=== PATIENT | male | born 1965 | race Caucasian/White ===

== ENCOUNTER → 2018-06-20 06:11 | Outpatient (CLI) | payer MEDICAID, SELFPAY ==
--- NOTE | 2018-06-20 06:13 | NM_ITS ---
History and Indications: Coronary artery disease, previous IN, hypertension, hyperlipidemia, tobacco use, family history, chest pain and shortness of breath Procedure: Patient exercised on [place] protocol 6 minutes, resting heart rate was 56 bpm resting blood pressure 179/93, with exercise maximum heart achieved was 1 46 bpm is greater than 85% of the maximum predicted heart rate and a blood pressure was 185/85. Test was started due to shortness of breath and fatigue. Patient has adequate exercise capacity achieved 7mets of workload on treadmill, the blood pressure response to exercise was abnormal. Electrocardiogram: Resting electrocardiogram showed sinus bradycardia, with exercise frequent ventricular complexes present, excessive baseline artifact seen, there is less than 1.[address] segment depression noted from the baseline EKG in the recovery. The EKG portion of the exercise Myoview is nondiagnostic due to excessive baseline artifact. Cardiac stress and resting SPECT images: Cardiac stress and resting SPECT images were obtained using technetium 99 Myoview 32.0 mCi stress and 9.9 mCi at rest. Gated SPECT further analysis of segmental wall motion and calculation of the ejection fraction also done. Cardiac stress and rest SPECT images show uniform myocardial activity without segmental perfusion abnormality, computer derived ejection fraction is 51% with no regional wall motion abnormality, right ventricle is normal size and contractility. Conclusion: 1. The EKG portion of the exercise Myoview is nondiagnostic secondary to excessive baseline artifact, patient has adequate exercise capacity achieved 7mets of workload on treadmill, the blood pressure response to exercise was adequate. 2. No scintigraphic evidence of reversible ischemia seen at this level of exercise, computer derived ejection fraction is 51% with no regional wall motion abnormality, right ventricle is normal size and contractility.
--- NOTE | 2018-06-20 06:13 | CA_ITS ---
PROCEDURE: 2-D M-mode and color Doppler study INDICATIONS FOR THE TEST: Chest pain + COPD Heart Murmur Tobacco Smoking Palpitations Fatigue Syncope Edema Hypertension+Diabetes Mellitus Rheumatic Fever SOB+GONSALES Obesity Hyperlipidemia+ Family History HD Additional History CAD, ABN EKG, ALCOHOL USE, TIA PATIENT INFORMATION HEIGHT: 67 WEIGHT:179 GENDER: Male B/P:146/96 2-D/M-MODE INTERPRETATION: 2-D MEASUREMENTS OBSERVED VALUES IN CMS Right Ventricular Dimension (RVDd) 2.1 Interventricular Septum (Thickness)(IVsd) 1.1 Left Ventricular Internal Dimensions(LVIDd) 5.4 Left Ventricular Posterior Wall (Thickness)(LVPWd) 0.9 Aortic Root 3.1 Aortic Cusp Separation 2.1 Left Atrial Dimensions (LAD) 3.4 2D 1. Left atrium is mildly enlarged, left ventricle is normal size, mild concentric left ventricular hypertrophy, visually estimated ejection fraction 55% with no regional wall motion abnormality. 2. The right atrium is mildly enlarged, right ventricle is normal size and contractility. 3. The aortic valve is minimally thickened and fibrosed. 4. The mitral and tricuspid valve are grossly normal. 5. The pulmonic valve is poorly visualized. 6. No significant pericardial effusion noted. DOPPLER INTERROGATION: Doppler interrogation of the aortic, mitral and tricuspid valvular presence of mild mitral and tricuspid regurgitation, tricuspid regurgitation jet velocity is inadequate for calculation of the right ventricular systolic pressure, diastolic parameters are within inconclusive. CONCLUSION: 1. Mild biatrial enlargement, normal left ventricular size, mild concentric left ventricular hypertrophy, visually estimated ejection fraction 55% with no regional wall motion abnormality, diastolic parameters are inconclusive. 2. Mild mitral and tricuspid regurgitation 3. No significant pericardial effusion noted.
--- NOTE | 2018-06-20 07:08 | HMH.ITSHM ---
Current Home Medications as stated by this patient Yair Aguirre or field representative/health education. []SERTRALINE MONTELUKAST METHYLPREDNISOLONE LISINOPRIL HYDROXYZINE BISOPROLOL ATORVASTATIN ASA
== END ==
PROVIDERS: PCP Nurse Practitioner Family; Visit Provider Internal Medicine
DX: I20.8 Other forms of angina pectoris (principal); R94.31 Abnormal electrocardiogram [ECG] [EKG]; E78.5 Hyperlipidemia, unspecified; I10 Essential (primary) hypertension; F10.20 Alcohol dependence, uncomplicated; Z82.49 Family history of ischemic heart disease and other diseases of the circulatory system
CPT/HCPCS: 78452; 93017; 93306; A9502

== ENCOUNTER 2018-06-28 23:32 | Observation (INO) ==
[2018-06-29 00:10] LABS: Basophils # 0.1 K/mm3 (0-0.2); Basophils % 0.7 % (0.1-2.0); Eosinophils # 0.3 K/mm3 (0.0-0.4); Eosinophils % 3.6 % (0.1-12.0); Hematocrit 41.3 % (42.0-52.0); Lymphocytes # 2.3 K/mm3 (0.7-4.5); Lymphocytes % 27.5 % (10-50); Mean Corpuscular HGB Conc 33.8 g/dL (31.8-35.4); Mean Corpuscular Volume 82.9 fl (80-94); Mean Platelet Volume 6.6 fl (7.4-10.4); Monocytes # 0.4 K/mm3 (0.1-1.0); Monocytes % 5.4 % (1.7-9.3); Neutrophils # 5.2 K/mm3 (1.8-7.8); Neutrophils % 62.9 % (37.0-80.0); Platelet Count 260 K/mm3 (142-424); Red Blood Count 4.98 M/mm3 (4.60-6.20); Red Cell Distribution Width 13.6 % (11.5-17.5); White Blood Count 8.2 K/mm3 (4.8-10.8)
--- NOTE | 2018-06-29 00:18 | Emergency Department Note ---
ED Disposition Clinical Impression: Chest pain Qualifiers: Chest pain type: precordial pain Qualified Code(s): R07.2 - Precordial pain HTN (hypertension) Qualifiers: Hypertension type: essential hypertension Qualified Code(s): I10 - Essential (primary) hypertension Disposition: Admitted as Observation Condition on Discharge: Good - Critical Care Critical Care Time: No Attestation: On 06/28/18, the high probability of a clinically significant, sudden or life threatening deterioration of the following system(s) required my full and direct attention, intervention and personal management. The time I documented below is in addition to time spent performing reported procedures but includes the follo wing listed in this critical care notation. Medical Decision Making - Medical Records Medical records reviewed: Yes: I reviewed the patient's medical records. - [place] Inquiry Pt receiving controlled substance: No Vital Signs: 06/28/18 23:35 06/29/18 00:07 06/29/18 01:24 Temperature 97.9 F Temperature Source Oral Pulse Rate Pulse Rate [Right Brachial] 69 65 58 L Respiratory Rate 16 14 14 Blood Pressure Blood Pressure [Right Arm] 163/96 H 151/86 H 149/80 H Blood Pressure Mean [Right Arm] 118 107 103 Blood Pressure Source [Right Arm] Automatic Cuff Automatic Cuff Automatic Cuff Blood Pressure Position [Right Arm] Sitting Sitting Sitting 02 Sat by Pulse Oximetry 97 97 96 Oxygen Delivery Method Room Air Room Air Room Air 06/29/18 01:30 06/29/18 02:47 06/29/18 03:15 Temperature 98.5 F Temperature Source Oral Pulse Rate 63 Pulse Rate [Right Brachial] 58 L 61 Respiratory Rate 14 16 15 Blood Pressure 121/61 Blood Pressure [Right Arm] 145/80 H 125/64 Blood Pressure Mean [Right Arm] 101 84 Blood Pressure Source [Right Arm] Automatic Cuff Automatic Cuff Blood Pressure Position [Right Arm] Sitting Sitting 02 Sat by Pulse Oximetry 96 98 Oxygen Delivery Method Room Air Room Air Room Air - Lab Data Lab results reviewed: Yes: I reviewed the patient's lab results. Lab Results 06/28/18 23:55: WBC 8.2, RBC 4.98, Hgb 14.0 L, Hct 41.3 L, MCV 82.9, MCH 28.0, MCHC 33.8, RDW 13.6, Plt Count 260, MPV 6.6 L, Neut % (Auto) 62.9, Lymph % (Auto ) 27.5, [place] % (Auto) 5.4, Eos % (Auto) 3.6, Baso % (Auto) 0.7, Neut # (Auto) 5.2, Lymph # (Auto) 2.3, [place] # (Auto) 0.4, Eos # (Auto) 0.3, Baso # (Auto) 0.1 06/28/18 23:55: Sodium 128 L, Potassium 4.0, Chloride 93 L, Carbon Dioxide 26, Anion Gap 13.0, BUN 8, Creatinine 1.01, Estimated Creat Clear 98, Estimated GFR 77, Est GFR ( Amer) 93, Glucose 108 H, Calcium 9.0, Troponin I < 0.02 06/29/18 02:30: Troponin I < 0.02 Result diagrams: 06/28/18 23:55 06/28/18 23:55 Orders (Tests/Meds): ED MEDICATIONS Discontinued Medications Generic Name Dose Route Start Last Admin Trade Name Freq PRN Reason Stop Dose Admin Famotidine 20 mg 06/29/18 02:31 06/29/18 02:37 Pepcid 20mg/2ml Vial IV 06/29/18 02:32 20 mg ONCE ONE Administration Metoclopramide HCl 10 mg 06/29/18 02:31 06/29/18 02:37 Reglan 10mg/2ml Vial IVP 06/29/18 02:32 10 mg ONCE ONE Administration ORDERS Category Date Time Status XR chest 2V Stat Exams 06/29/18 00:24 Taken ECG Request by /Derek Stat Y 06/28/18 23:46 Ordered - Radiology Data #1 Image(s): Chest Image Reviewed: Yes I reviewed the patient's radiology image Preliminary Findings: Normal/NAD - ECG Data Tracing #1 Normal Sinus Rhythm: Yes Ischemic changes: non-specific ST-T wave changes - JEREMIE Score for Non-Stemi Age of Patient: 50-59 years old Heart Rate: 50-69 bpm Systolic Blood Pressure: 160-199 mmHg Serum Creatinine: 0.80-1.19 mg/dl CHF [place] Class: I-No CHF Other Risk Factors: None Non-Stemi Risk Score: 61 General Adult HPI - General Chief complaint: PAIN Stated complaint: High blood pressure Time Seen by Provider: 06/28/18 23:50 Mode of Arrival: Family Vehicle Source of Information: Patient, Relative, Medical Record Limitations: No Limitations Description of Symptoms (Recalled from ER Triage Doc. by RN): Pt states his bp has been high all day, he states he just stated a beta karolina 3 days ago and tonight is haing bad heartburn, n/v. Pt states he had a HART and blured vision earlier but doesn't now. - History of Present Illness HPI narrative: pt with episodes of chest pain assoc with elevated bp and dizzyness - has had recent nondx myoview - he presnts to ed for eval Onset (ago): hour(s) Location: chest Severity: moderate Associated symptoms: denies other symptoms Treatments prior to arrival: aspirin - Related Data Home Medications Medication Instructions Recorded Confirmed atorvastatin 40 mg tablet 40 mg PO DAILY 06/13/18 06/29/18 hydroxyzine HCl 100 mg tablet 100 mg PO DAILY tab 06/13/18 06/29/18 lisinopril 20 mg tablet 20 mg PO DAILY 06/13/18 06/29/18 montelukast 10 mg tablet 10 mg PO QPM 06/13/18 06/29/18 sertraline 100 mg tablet 100 mg PO DAILY 06/13/18 06/29/18 meloxicam 15 mg tablet 15 mg PO DAILY 06/28/18 06/29/18 Aspirin 81 mg PO DAILY 06/29/18 06/29/18 Bisoprolol Fumarate [Bisoprolol 5 mg PO DAILY 06/29/18 06/29/18 5mg Tablet] Allergies Allergy/AdvReac Type Severity Reaction Status Date / Time No Known Allergies Allergy Verified 06/28/18 23:45 [facility] History - Hepatitis A Screen Drug use history?: No High risk sexual behaviors?: No History of sexually transmitted infection?: No Currently employed?: No Childcare worker?: No Do you have indoor plumbing?: Yes Do you have electricity?: Yes Attestation statement:: This patient has been screened for Hepatitis A risk factors. I have reviewed the patient's past medical history: Yes Medical History: Reports:: Anxiety, Coronary Artery Disease, Depression, Heart Murmur, Hyperlipidemia, Hypertension, Myocardial Infarction, Transient Ischemic Attacks (TIA) Denies:: Diabetes Mellitus Type 1, Diabetes Mellitus Type 2, Internal Pacemaker, Pulmonary Embolism Other Medical History: Reports: Hypothyroidism. Denies: Blood Transfusion Reaction, Chemotherapy Comment: Mini stroke Laterality Cases: Bilateral: Myringotomy (Ear Tubes) Other Surgeries: Yes: Other (Ear Sx). No: Colonoscopy, EGD, Pacemaker Amputation: No Fractures: No - Social History Smoking Status: Former smoker Tobacco Type: smokeless tobacco Alcohol Intake: current Alcohol Intake Frequency:: 0-2 drinks per day Substance Use Type: denies use - Psychiatric History Expresses thoughts of harming self/others: None Suicide Plan Description: No Plan Pschychiatric History:: Reports:: Anxiety, Depression Family Hx:: Coronary Artery Disease, Heart Attack, Diabetes Comment: Brother- at 44 with [place] ROS Obtained: Yes All systems reviewed & no additional complaints - Constitutional Constitutional: Denies fever(s) - Eyes Eyes: Denies change in vision - ENT Ears, Nose, Mouth, and Throat: Denies sore throat - Cardiovascular Cardiovascular: Reports chest pain, Reports dyspnea, Reports lightheadedness - Respiratory Respiratory: No cough - Gastrointestinal Gastrointestingal: Reports: nausea. Denies: abdominal pain - Genitourinary Male Genitourinary: Denies hematuria - Musculoskeletal Musculoskeletal: Denies joint pain, Denies neck pain - Integumentary/Breasts Skin/Breast: Denies rash - Neurologic Neurologic: Denies headache(s), Denies seizure-like activity, Denies syncope Physical Exam - General General appearance: alert - Head Head exam: normocephalic - Eye Eye exam: Present: PERRL, EOMI - ENT ENT exam: Present: mucous membranes dry - Neck Neck exam: Present: trachea midline - Respiratory Respiratory exam: Absent: respiratory distress - Cardiovascular Cardiovascular exam: Present: regular rate, systolic murmur - Abdominal Exam Abdominal exam: Present: soft - Extremities Exam Extremities exam: Present: full ROM - Neurological Exam Neurological exam: Present: alert, CN II-XII intact - Psychiatric Psychiatric exam: Present: normal affect - Skin Skin exam: Absent: rash
[2018-06-29 00:22] LABS: Blood Urea Nitrogen 8 mg/dL (7-18); Carbon Dioxide 26 mmol/L (21.0-32.0); Chloride 93 mmol/L (98-107); Glucose 108 mg/dL (74-106); Sodium 128 mmol/L (136-145)
[2018-06-29 05:57] LABS: Basophils # 0.1 K/mm3 (0-0.2); Basophils % 0.7 % (0.1-2.0); Eosinophils # 0.3 K/mm3 (0.0-0.4); Eosinophils % 3.5 % (0.1-12.0); Hematocrit 39.3 % (42.0-52.0); Hemoglobin 12.9 g/dL (14.1-18.0); Lymphocytes # 1.7 K/mm3 (0.7-4.5); Lymphocytes % 22.4 % (10-50); Mean Corpuscular HGB Conc 32.9 g/dL (31.8-35.4); Mean Corpuscular Hemoglobin 27.6 pg (27.0-31.2); Mean Corpuscular Volume 83.7 fl (80-94); Mean Platelet Volume 6.4 fl (7.4-10.4); Monocytes # 0.5 K/mm3 (0.1-1.0); Monocytes % 6.3 % (1.7-9.3); Neutrophils % 67.1 % (37.0-80.0); Platelet Count 231 K/mm3 (142-424); Red Cell Distribution Width 13.5 % (11.5-17.5); White Blood Count 7.4 K/mm3 (4.8-10.8)
[2018-06-29 06:14] LABS: Anion Gap 12.3 mEq/L (5-15); Blood Urea Nitrogen 8 mg/dL (7-18); Calcium 9.3 mg/dL (8.5-10.1); Carbon Dioxide 29 mmol/L (21.0-32.0); Chloride 97 mmol/L (98-107); Chol/HDL Ratio 3.1 (1-3.5); Cholesterol 220 mg/dL (140-200); Glucose 103 mg/dL (74-106); HDL Cholesterol 70 mg/dL (27-67); LDL Cholesterol 126 mg/dL (0-130); Potassium 4.3 mmoL/L (3.5-5.1); Sodium 134 mmol/L (136-145); Triglycerides 119 mg/dL (30-200); VLDL Cholesterol 24 mg/dL (0-40)
--- NOTE | 2018-06-29 07:49 | Pharmacy Consult Notes ---
[facility] Pharmacy VTE Monitoring - Patient Demographics Admission date: 06/29/18 Report Date: 06/29/18 Time: 07:48 Allergies/Adverse Reactions: Patient Allergies No Known Allergies Allergy (Verified 06/28/18 23:45) Height: 1.7 m Weight: 80.513 kg Patient Problems: Current Active Problems (This Medical Record has been edited. Action required.) Chest pain (Acute) HTN (hypertension) (Acute) - VTE Risk Labs: VTE Related Lab Results Hgb 12.9 g/dL (14.1-18.0) L 06/29/18 05:35 Hct 39.3 % (42.0-52.0) L 06/29/18 05:35 Plt Count 231 K/mm3 (142-424) 06/29/18 05:35 BUN 8 mg/dL (7-18) 06/29/18 05:35 Creatinine 1.02 mg/dL (0.70-1.30) 06/29/18 05:35 Estimated Creat Clear 94 mL/min (50-200) 06/29/18 05:35 Was VTE Risk Assessment Performed: Yes VTE Score: 2 VTE Risk Level: Very Low Risk Clinical Trial Participant: No - Prophylaxis VTE Prophylaxis Ordered?: Yes Types of VTE Prophylaxis: TEDS Knee High
--- NOTE | 2018-06-29 08:40 | Consult Report ---
History of Present Illness Consult date: 06/29/18 Requesting physician: Terence Rand Consult reason: hypertension Chief complaint: heartburn, hypertension Additional Medical History:: 1. Hypertension 2. Hyperlipidemia 3. Hypothyroidism 4. Strong family history of early coronary artery disease in his parents History of present illness: 52-year-old white male admitted through the emergency department for complaint of heartburn and elevated blood pressure. Symptoms of heartburn sensation occurred while at rest. Patient noted blood pressure to be in the 190s came to the emergency department for further treatment. He does admit to forgetting to take his evening dose of bisoprolol. Symptoms of heartburn sensation did wake him from sleep. He had a similar episode about 2 weeks ago when his blood press ure was in the 150s. He denies any exertional chest pain, pressure or tightness but states he does not do any exertional activity on a regular basis. He denies tobacco use or diabetes. Initial troponins were normal x2. EKG is sinus without acute change. Cardiology consulted for evaluation recommendations due to the patient having a stress test earlier this month that showed no ischemia but nondiagnostic exercise portion. [facility] History Medical History: Reports:: Anxiety, Coronary Artery Disease, Depression, Heart Murmur, Hyperlipidemia, Hypertension, Myocardial Infarction, Transient Ischemic Attacks (TIA) Denies:: Cancer, Diabetes Mellitus Type 1, Diabetes Mellitus Type 2, Internal Pacemaker, MRSA, Pulmonary Embolism Other Medical History: Reports: Hypothyroidism. Denies: Blood Transfusion Reaction, Chemotherapy Laterality Cases: Bilateral: Myringotomy (Ear Tubes) Other Surgeries: Yes: Other (EAR SURGERY TUBES). No: Colonoscopy, EGD, Pacemaker Amputation: No Fractures: No - *Social History Educational Level: Completed GED/General Educational Development Smoking Status: Former smoker Tobacco Type: cigarettes, smokeless tobacco #Yrs smoked (if former smoker): 1 Alcohol Intake: current Alcohol Intake Frequency:: 0-2 drinks per day Substance Use Type: denies use Occupational Status: disabled Housing: house Household Members: family - Psychiatric History Expresses thoughts of harming self/others: None Suicide Plan Description: No Plan Pschychiatric History:: Reports:: Anxiety, Depression *Family Hx:: Coronary Artery Disease, Heart Attack, Diabetes Meds Home Medications Medication Instructions Recorded Confirmed Type hydroxyzine HCl 100 mg tablet 150 mg PO HS tab 06/13/18 06/29/18 History lisinopril 20 mg tablet 20 mg PO DAILY 06/13/18 06/29/18 History montelukast 10 mg tablet 10 mg PO QPM 06/13/18 06/29/18 History sertraline 100 mg tablet 100 mg PO BID 06/13/18 06/29/18 History meloxicam 15 mg tablet 15 mg PO DAILY 06/28/18 06/29/18 History Aspirin 81 mg PO DAILY 06/29/18 06/29/18 History Atorvastatin Calcium [Atorvastatin 20 mg PO HS 06/29/18 06/29/18 History 20mg Tab] Bisoprolol Fumarate [Bisoprolol 5 mg PO DAILY 06/29/18 06/29/18 History 5mg Tablet] Allergies Allergy/AdvReac Type Severity Reaction Status Date / Time No Known Allergies Allergy Verified 06/28/18 23:45 Review of Systems - *Cardiovascular Reports chest pain at rest - *Respiratory Denies shortness of breath - *Gastrointestinal Reports heartburn - *Genitourinary Denies blood in urine - *Neurologic Denies headache(s), Denies seizure-like activity, Denies fainting Exam Vital signs and Labs for Last 24 Hours: Temp Pulse Resp BP Pulse Ox 97.7 F 43 L 20 169/80 H 94 L 06/29/18 03:45 06/29/18 04:25 06/29/18 03:45 06/29/18 03:45 06/29/18 03:45 Laboratory Results - last 24 hr 06/28/18 23:55: WBC 8.2, RBC 4.98, Hgb 14.0 L, Hct 41.3 L, MCV 82.9, MCH 28.0, MCHC 33.8, RDW 13.6, Plt Count 260, MPV 6.6 L, Neut % (Auto) 62.9, Lymph % (Auto) 27.5, [place] % (Auto) 5.4, Eos % (Auto) 3.6, Baso % (Auto) 0.7, Neut # (Auto) 5.2, Lymph # (Auto) 2.3, [place] # (Auto) 0.4, Eos # (Auto) 0.3, Baso # (Auto) 0.1 06/28/18 23:55: Sodium 128 L, Potassium 4.0, Chloride 93 L, Carbon Dioxide 26, Anion Gap 13.0, BUN 8, Creatinine 1.01, Estimated Creat Clear 98, Estimated GFR 77, Est GFR ( Amer) 93, Glucose 108 H, Calcium 9.0, Troponin I < 0.02 06/29/18 02:30: Troponin I < 0.02 06/29/18 05:35: WBC 7.4, RBC 4.70, Hgb 12.9 L, Hct 39.3 L, MCV 83.7, MCH 27.6, MCHC 32.9, RDW 13.5, Plt Count 231, MPV 6.4 L, Neut % (Auto) 67.1, Lymph % (Auto) 22.4, [place] % (Auto) 6.3, Eos % (Auto) 3.5, Baso % (Auto) 0.7, Neut # (Auto) 5.0, Lymph # (Auto) 1.7, [place] # (Auto) 0.5, Eos # (Auto) 0.3, Baso # (Auto) 0.1 06/29/18 05:35: Sodium 134 L, Potassium 4.3, Chloride 97 L, Carbon Dioxide 29, Anion Gap 12.3, BUN 8, Creatinine 1.02, Estimated Creat Clear 94, Estimated GFR 76, Est GFR ( Amer) 92, Glucose 103, Calcium 9.3, Troponin I < 0.02, Triglycerides 119, Cholesterol 220 H, LDL Cholesterol 126, VLDL Cholesterol 24, HDL Cholesterol 70 H, Cholesterol/HDL Ratio 3.1 I & O for Last 24 hours: Intake & Output 06/26/18 06/27/18 06/28/18 06/29/18 11:59 11:59 11:59 11:59 Weight 177 lb 8 oz - *Routine Neck Exam Present: supple. Absent: JVD, carotid bruit - *Routine Respiratory Exam Present: CTA bilaterally. Absent: accessory muscle use, rales, rhonchi, wheezes - *Routine Cardiovascular Exam Present: RRR. Absent: murmur, gallop, rubs - *Routine Abdominal Exam Present: soft. Absent: tenderness, distended, guarding - *Routine Extremities Exam Absent: edema, calf tenderness - *Routine Neurological Exam Present: alert, oriented X3, moving all extremities Assessment and Plan (1) Hyperlipidemia Current visit: Yes Status: Acute Category: Medical Code(s): E78.5 - Hyperlipidemia, unspecified (2) Chest pain Current visit: Yes Status: Acute Qualifiers: Chest pain type: precordial pain Qualified Code(s): R07.2 - Precordial pain Category: Medical Code(s): R07.9 - Chest pain, unspecified (3) HTN (hypertension) Current visit: Yes Status: Acute Qualifiers: Hypertension type: essential hypertension Qualified Code(s): I10 - Essential (primary) hypertension Category: Medical Code(s): I10 - Essential (primary) hypertension - Assessment and plan all Dx Assessment and Plan for all problems:: 1. Recurrent chest discomfort (heartburn sensation) at rest in patient with recent mixed result stress test (non-diagnostic EKG changes with no ischemia) with significant FH of early CAD and lifelong second hand smoke exposure. Recommend [facility] to assess for CAD. 2. Hypertension with some medication non-compliance. Timing of evening meds to be adjusted so he can remember to take it.
--- NOTE | 2018-06-29 13:06 | H&P/Discharge Summary ---
General - General Admission date:: 06/29/18 Discharge date: 06/29/18 *Admission Date: 06/29/18 *Chief complaint: chest pain *History of present illness: 52-year-old white male seen in ed with complaint of heartburn and elevated blood pressure. Symptoms of heartburn sensation occurred while at rest. Patient states his blood pressure to high so he came to ed for eval, pt states he forgot to take his bp med. Symptoms of heartburn sensation did wake him from sleep. He had a similar episode about 2 weeks ago when his blood pressure was in the 150s. Cardiology consulted for evaluation recommendations due to the patient having a stress test earlier this month that showed no ischemia but nondiagnostic exercise portion. [facility] History I have reviewed the patient's past medical history: Yes Medical History: Reports:: Anxiety, Coronary Artery Disease, Depression, Heart Murmur, Hyperlipidemia, Hypertension, Myocardial Infarction, Transient Ischemic Attacks (TIA) Denies:: Cancer, Diabetes Mellitus Type 1, Diabetes Mellitus Type 2, Internal Pacemaker, MRSA, Pulmonary Embolism Other Medical History: Reports: Hypothyroidism. Denies: Blood Transfusion Reaction, Chemotherapy Laterality Cases: Bilateral: Myringotomy (Ear Tubes) Other Surgeries: Yes: Other (EAR SURGERY TUBES). No: Colonoscopy, EGD, Pacemaker Amputation: No Fractures: No - *Social History Educational Level: Completed GED/General Educational Development Smoking Status: Former smoker Tobacco Type: cigarettes, smokeless tobacco #Yrs smoked (if former smoker): 1 Alcohol Intake: current Alcohol Intake Frequency:: 0-2 drinks per day Substance Use Type: denies use Occupational Status: disabled Housing: house Household Members: family - Psychiatric History Expresses thoughts of harming self/others: None Suicide Plan Description: No Plan Pschychiatric History:: Reports:: Anxiety, Depression *Family Hx:: Coronary Artery Disease, Heart Attack, Diabetes Review of Systems - Review of Systems Review of systems:: pertinent systems reviewed and negative unless documented below - Constitutional Denies headache(s) - Eyes Denies floaters - ENT Denies change in voice - *Cardiovascular Reports shortness of breath - *Respiratory Reports shortness of breath with activity, Denies chest congestion - *Gastrointestinal Denies feeling full early - *Genitourinary Denies painful urination - *Musculoskeletal Denies decreased muscle mass - Integumentary/Breasts Denies rash - *Neurologic Denies abnormal movements, Denies headache(s), Denies seizure-like activity, Denies fainting - Psychiatric Denies anxiety - Endocrine Denies increased thirst - Hematologic/Lymphatic Denies enlarged lymph nodes - Allergic/Immunologic Denies lip swelling Exam Vital signs and Labs for Last 24 Hours: Temp Pulse Resp BP Pulse Ox 97.6 F 44 L 18 120/66 98 06/29/18 08:00 06/29/18 12:10 06/29/18 12:10 06/29/18 12:10 06/29/18 12:10 Laboratory Results - last 24 hr 06/28/18 23:55: WBC 8.2, RBC 4.98, Hgb 14.0 L, Hct 41.3 L, MCV 82.9, MCH 28.0, MCHC 33.8, RDW 13.6, Plt Count 260, MPV 6.6 L, Neut % (Auto) 62.9, Lymph % (Auto) 27.5, Yates % (Auto) 5.4, Eos % (Auto) 3.6, Baso % (Auto) 0.7, Neut # (Auto) 5.2, Lymph # (Auto) 2.3, Yates # (Auto) 0.4, Eos # (Auto) 0.3, Baso # (Auto) 0.1 06/28/18 23:55: Sodium 128 L, Potassium 4.0, Chloride 93 L, Carbon Dioxide 26, Anion Gap 13.0, BUN 8, Creatinine 1.01, Estimated Creat Clear 98, Estimated GFR 77, Est GFR ( Amer) 93, Glucose 108 H, Calcium 9.0, Troponin I < 0.02 06/29/18 02:30: Troponin I < 0.02 06/29/18 05:35: WBC 7.4, RBC 4.70, Hgb 12.9 L, Hct 39.3 L, MCV 83.7, MCH 27.6, MCHC 32.9, RDW 13.5, Plt Count 231, MPV 6.4 L, Neut % (Auto) 67.1, Lymph % (Au to) 22.4, Yates % (Auto) 6.3, Eos % (Auto) 3.5, Baso % (Auto) 0.7, Neut # (Auto) 5.0, Lymph # (Auto) 1.7, Yates # (Auto) 0.5, Eos # (Auto) 0.3, Baso # (Auto) 0.1 06/29/18 05:35: Sodium 134 L, Potassium 4.3, Chloride 97 L, Carbon Dioxide 29, Anion Gap 12.3, BUN 8, Creatinine 1.02, Estimated Creat Clear 94, Estimated GFR 76, Est GFR ( Amer) 92, Glucose 103, Calcium 9.3, Troponin I < 0.02, Triglycerides 119, Cholesterol 220 H, LDL Cholesterol 126, VLDL Cholesterol 24, HDL Cholesterol 70 H, Cholesterol/HDL Ratio 3.1 06/29/18 09:19: Troponin I < 0.02 I & O for Last 24 hours: Intake & Output 06/27/18 06/28/18 06/29/18 06/30/18 11:59 11:59 11:59 11:59 Intake Total 0 / 0 Balance 0 / 0 Weight 177 lb 8 oz - *Routine HEENT Exam Head: Present: normocephalic Eye: Present: PERRL ENT: Present: mucous membranes moist - *Routine Neck Exam Present: supple. Absent: lymphadenopathy - *Routine Respiratory Exam Present: CTA bilaterally - *Routine Cardiovascular Exam Present: RRR - *Routine Abdominal Exam Present: soft, normoactive bowel sounds. Absent: tenderness - *Routine Extremities Exam Absent: cyanosis, clubbing, edema - *Routine Skin Exam Present: warm. Absent: rash - *Routine Neurological Exam Present: alert, oriented X3 Hospital Course Hospital Course: ANGIOGRAPHIC RESULTS: 1. The left main artery normal 2. The left anterior descending artery has proximal concentric 30% stenoses with mild mid vessel 10% stenoses 3. The circumflex artery is a large dominant vessel with 20-30% stenosis in the first obtuse marginal artery and mild distal luminal irregularities 4. The right coronary artery small nondominant normal 5. The [place] ventriculogram reveals normal 65% 6. The left ventricular end-diastolic pressure 15 mmHg IMPRESSION: 1. Mild nonflow limiting coronary artery disease as described above 2. Normal ejection fraction 3. Normal left ventricular end-diastolic pressure PLAN: 1. Medical management 2. Evaluation noncardiac chest pain will follow as outpt Results Labs on day of discharge: Labs from last 24 hours 06/29/18 06/29/18 06/29/18 09:19 05:35 05:35 WBC 7.4 RBC 4.70 Hgb 12.9 L Hct 39.3 L MCV 83.7 MCH 27.6 MCHC 32.9 RDW 13.5 Plt Count 231 MPV 6.4 L Neut % (Auto) 67.1 Lymph % (Auto) 22.4 Yates % (Auto) 6.3 Eos % (Auto) 3.5 Baso % (Auto) 0.7 Neut # (Auto) 5.0 Lymph # (Auto) 1.7 Yates # (Auto) 0.5 Eos # (Auto) 0.3 Baso # (Auto) 0.1 Sodium 134 L Potassium 4.3 Chloride 97 L Carbon Dioxide 29 Anion Gap 12.3 BUN 8 Creatinine 1.02 Estimated Creat Clear 94 Estimated GFR 76 Est GFR ( Amer) 92 Glucose 103 Calcium 9.3 Troponin I < 0.02 < 0.02 Triglycerides 119 Cholesterol 220 H LDL Cholesterol 126 VLDL Cholesterol 24 HDL Cholesterol 70 H Cholesterol/HDL Ratio 3.1 06/29/18 06/28/18 06/28/18 02:30 23:55 23:55 WBC 8.2 RBC 4.98 Hgb 14.0 L Hct 41.3 L MCV 82.9 MCH 28.0 MCHC 33.8 RDW 13.6 Plt Count 260 MPV 6.6 L Neut % (Auto) 62.9 Lymph % (Auto) 27.5 Yates % (Auto) 5.4 Eos % (Auto) 3.6 Baso % (Auto) 0.7 Neut # (Auto) 5.2 Lymph # (Auto) 2.3 Yates # (Auto) 0.4 Eos # (Auto) 0.3 Baso # (Auto) 0.1 Sodium 128 L Potassium 4.0 Chloride 93 L Carbon Dioxide 26 Anion Gap 13.0 BUN 8 Creatinine 1.01 Estimated Creat Clear 98 Estimated GFR 77 Est GFR ( Amer) 93 Glucose 108 H Calcium 9.0 Troponin I < 0.02 < 0.02 Triglycerides Cholesterol LDL Cholesterol VLDL Cholesterol HDL Cholesterol Cholesterol/HDL Ratio - Additional Comments Rounded with Dr. Rand all orders per [place] DS: Diagnosis - Discharge Diagnosis (1) Hyperlipidemia Status: Acute (2) Chest pain Status: Acute (3) HTN (hypertension) Status: Acute Discharge Medications - Medications for Discharge Home Medication List at Discharge: No Action sertraline 100 mg tablet 100 mg PO BID hydroxyzine HCl 100 mg tablet 150 mg PO HS tab montelukast 10 mg tablet 10 mg PO QPM lisinopril 20 mg tablet 20 mg PO DAILY meloxicam 15 mg tablet 15 mg PO DAILY Bisoprolol Fumarate [Bisoprolol 5mg Tablet] 5 mg PO DAILY Aspirin 81 mg PO DAILY Atorvastatin Calcium [Atorvastatin 20mg Tab] 20 mg PO HS Disposition Disposition: Home, Self-Care
== END 2018-06-29 16:27 | disposition home or self-care (01) ==
LOC: ER 23:32 → 2ND 23:32
PROVIDERS: ADMIT Emergency Medicine; ATTEND Emergency Medicine

== ENCOUNTER → 2018-08-08 08:33 | Outpatient (CLI) | payer MEDICAID, SELFPAY ==
--- NOTE | 2018-08-08 08:36 | FL_ITS ---
FL upper GI w air HISTORY: ITS.REASON: heartburn/reflux ORDERING PHYSICIAN: Eliezer Lima MD PATIENT AGE: 52 years Comparison: None FINDINGS: The esophagus, stomach, and duodenum have an unremarkable appearance. There is no evidence of hiatal hernia. No ulcer or mass evident. No mucosal abnormalities apparent. There is normal peristalsis. The duodenal C-loop is nondisplaced. FLUOROSCOPY TIME : 1 minute and 17 seconds. IMPRESSION: Negative upper GI
== END ==
PROVIDERS: PCP Emergency Medicine; Referring Provider Surgery; Visit Provider Surgery
DX: R12 Heartburn (principal)
CPT/HCPCS: 74247

== ENCOUNTER 2020-05-07 11:14 | Emergency (ER) | payer MEDICAID, SELFPAY ==
[2020-05-07 11:15] VITALS: BP 198/76; PULSE 74; RESP 18; O2SAT 97; BMI 26.6
--- NOTE | 2020-05-07 11:29 | HMH.EDUTC ---
[facility] Clinical Impression: Encounter for laboratory testing for COVID-19 virus Disposition: Home, Self-Care Condition on Discharge: Good Instructions: Preventing the Spread of Coronavirus Discharge Instructions Additional Instructions: *Monitor Temp, Over the counter Motrin or Tylenol as directed/as needed Tylenol every 4 hours and Motrin every 6 hours (as long as your family doctor has told you that you can take it) for fever or pain. and straight to ER if unable to lower temp less than 101.0 after medication given *Warm salt water gargles may help to soothe the throat *Throat Lozenges *Warm fluids like tea with honey may help to soothe the throat *Sleep elevated *Humidifier/Vaporizer Follow up IMMEDIATELY for new or worsening symptoms or no Noticeable improvement over the next 48-72 hours. 911 for difficulty breathing or swallowing You was tested for today for COVID19 your test result should be back later this evening, you may call back later this evening to see if your test results are back and the result You was given a handout with instructions for Self Quarantine and Self isolation for while you wait on test results and what to do if they are positive Referrals: Aziza Henson PA [Primary Care Provider] - As needed Time of Disposition: 11:31 Medical Decision Making - [place] Inquiry Pt receiving controlled substance: No [place] was queried for this patient: No Vital Signs: 05/07/20 11:15 Pulse Rate [Radial] 74 Respiratory Rate 18 Blood Pressure [Right Arm] 198/76 H Blood Pressure Mean [Right Arm] 116 Blood Pressure Source [Right Arm] Automatic Cuff Blood Pressure Position [Right Arm] Sitting 02 Sat by Pulse Oximetry 97 Oxygen Delivery Method Room Air Orders (Tests/Meds): ORDERS Category Date Time Status Covid-19 Nasal PCR ([facility]) Routine Lab 05/07/20 11:27 Ordered [facility] HPI - General Stated complaint: wants covid test Time Seen by Provider: 05/07/20 11:29 Mode of Arrival: Ambulatory Source of Information: Patient Limitations: No Limitations Description of Symptoms (Recalled from Triage Doc. by RN): wants covid test. HEENT Symptoms (Recalled from RN notes): No Resp Symptoms (Recalled from RN notes): No Skin Symptoms (Recalled from RN notes): No MS Symptoms (Recalled from RN notes): No Functional Status (Recalled from RN notes): wnl - History of Present Illness Provider Complaint: Patient states that he came in to get tested for COVID States that his mom and sister was recently Dx States that he hasnt been around them but has been around the grand daughter that is under quarantine but she hasnt been sick and he wanted to make sure that he didnt have it - Related Data Home Medications Medication Instructions Recorded Confirmed Aspirin 81 mg PO DAILY 06/29/18 11/18/18 Previous Rx's Medication Instructions Recorded atorvastatin 40 mg tablet 40 mg PO QHS #30 tab 07/06/18 hydroxyzine pamoate 50 mg capsule 150 mg PO QHS PRN #270 cap 08/10/18 lisinopril 20 mg tablet 20 mg PO BID #180 tab 08/10/18 omeprazole magnesium 20 mg 20 mg PO DAILY #90 tab 08/10/18 tablet,delayed release bisoprolol fumarate 5 mg tablet 5 mg PO DAILY #90 tab 08/21/18 montelukast 10 mg tablet 10 mg PO QPM #90 tab 08/21/18 naproxen 500 mg tablet 500 mg PO BID #60 tab 08/21/18 cephalexin 500 mg capsule 500 mg PO TID 10 Days #30 cap 11/18/18 mupirocin calcium 2 % topical cream 1 applic TOPICAL BID #30 g 11/18/18 sulfamethoxazole 800 1 tab PO BID 10 Days #20 tab 11/18/18 mg-trimethoprim 160 mg tablet mupirocin 2 % topical ointment 1 applic TOPICAL BID #15 g 11/20/18 sertraline 100 mg tablet See Rx Instructions .ROUTE 01/14/20 .COMPLEX #60 tab Allergies Allergy/AdvReac Type Severity Reaction Status Date / Time No Known Allergies Allergy Verified 11/18/18 10:12 - Worker's Comp Is this a Worker's Comp case?: No [facility] History - Hepatitis A Screen Drug use history?: No High risk
[2020-05-07 11:34] VITALS: BP 198/76; PULSE 74; RESP 18; TEMP 36.7; O2SAT 97
--- NOTE | 2020-05-07 18:28 | PC.NURSE ---
Patient notified of positive COVID results. Educated on strict quarantine and treating his symptoms as they appear.
== END 2020-05-07 11:36 | disposition home or self-care (01) ==
PROVIDERS: Emergency Provider Nurse Practitioner; PCP Physician Assistant
DX: U07.1 COVID-19 (principal); F41.8 Other specified anxiety disorders; I25.10 Atherosclerotic heart disease of native coronary artery without angina pectoris; I25.2 Old myocardial infarction; E03.9 Hypothyroidism, unspecified; E78.5 Hyperlipidemia, unspecified; I10 Essential (primary) hypertension; Z79.899 Other long term (current) drug therapy
CPT/HCPCS: 99201; U0003